=== PATIENT | male | born 1965 | race Caucasian/White ===

== ENCOUNTER → 2022-11-01 | Outpatient (CLI) | payer OTHER ==
[2022-11-01 10:21] LABS: BASO # 0.1 10^3/uL (0.0-0.2); BASO % 0.6 % (0.0-1.0); EOS # 0.2 10^3/uL (0.0-0.5); EOS % 2.4 % (0.0-3.0); HEMATOCRIT 44.3 % (42.0-52.0); HEMOGLOBIN 14.6 g/dl (13.5-17.5); LYMPH # 2.4 10^3/uL (1.5-5.0); LYMPH % 27.9 % (24.0-44.0); MEAN CORPUSCULAR HEMOGLOBIN 30.3 pg (27.0-33.0); MEAN CORPUSCULAR VOLUME 91.9 fl (80.0-96.0); MONO # 0.8 10^3/uL (0.0-0.8); MONO % 9.6 % (2.0-8.0); NEUTROPHILS % 58.8 % (36.0-66.0); PLATELET COUNT, AUTOMATED 429 10^3/uL (150-450); RED BLOOD COUNT 4.82 10^6/uL (4.30-6.10); WHITE BLOOD COUNT 8.4 10^3/uL (4.0-10.0)
[2022-11-01 10:54] LABS: ALBUMIN 3.7 G/DL (3.2-5.2); ALKALINE PHOSPHATASE 77 U/L (46-116); ALT/SGPT 15 U/L (7.0-40); AST/SGOT 18 U/L (<34); BILIRUBIN,TOTAL 0.7 MG/DL (0.3-1.2); BLOOD UREA NITROGEN 14 MG/DL (9-23); CALCIUM LEVEL 9.1 MG/DL (8.5-10.1); CARBON DIOXIDE LEVEL 29 MMOL/L (20-31); CHLORIDE LEVEL 105 MMOL/L (98-107); CHOLESTEROL LEVEL 115 MG/DL (<200); CHOLESTEROL RISK RATIO 3.59 (<5); CREATININE FOR GFR 0.88 MG/DL (0.70-1.30); GLOMERULAR FILTRATION RATE > 60.0 (>56); GLUCOSE, FASTING 101 MG/DL (60-100); LDL CHOLESTEROL 55.4 MG/DL (<100); NON-HDL-C 83 MG/DL; POTASSIUM SERUM 4.3 MMOL/L (3.5-5.1); SODIUM LEVEL 142 MMOL/L (136-145); TOTAL PROTEIN 6.7 G/DL (5.7-8.2); TRIGLYCERIDES LEVEL 138 MG/DL (<150)
[2022-11-01 11:20] LABS: HEMOGLOBIN A1c 5.2 % (4.0-6.0)
== END ==
LOC: M LAB 09:43
PROVIDERS: ATTEND Student in an Organized Health Care Education/Training Program
DX: E66.01 Morbid (severe) obesity due to excess calories (principal); I10 Essential (primary) hypertension

== ENCOUNTER → 2023-08-09 | Outpatient (REF) | payer OTHER | LOC: M SFHCLERA 11:29 | PROVIDERS: ATTEND Physician Assistant | DX: L08.9 Local infection of the skin and subcutaneous tissue, unspecified (principal) ==

== ENCOUNTER → 2023-08-24 | Outpatient (CLI) | payer OTHER ==
[2023-08-24 16:46] LABS: BASO # 0.1 10^3/uL (0.0-0.2); BASO % 0.6 % (0.0-1.0); EOS # 0.3 10^3/uL (0.0-0.5); EOS % 2.6 % (0.0-3.0); HEMATOCRIT 43.5 % (42.0-52.0); HEMOGLOBIN 14.4 g/dl (13.5-17.5); LYMPH # 3.2 10^3/uL (1.5-5.0); LYMPH % 29.2 % (24.0-44.0); MEAN CORPUSCULAR HEMOGLOBIN 30.3 pg (27.0-33.0); MEAN CORPUSCULAR HGB CONC 33.1 g/dl (32.0-36.5); MEAN CORPUSCULAR VOLUME 91.6 fl (80.0-96.0); NEUTROPHILS # 6.4 10^3/uL (1.5-8.5); NEUTROPHILS % 58.1 % (36.0-66.0); PLATELET COUNT, AUTOMATED 359 10^3/uL (150-450); RED BLOOD COUNT 4.75 10^6/uL (4.30-6.10); WHITE BLOOD COUNT 11.1 10^3/uL (4.0-10.0)
[2023-08-24 17:02] LABS: HEMOGLOBIN A1c 5.3 % (4.0-6.0)
[2023-08-24 17:13] LABS: IRON (FE) 95 UG/DL (65-175); PERCENT SATURATION 30.5 % (19.7-50.0); TOTAL IRON BINDING CAPACITY 311 UG/DL (250-425)
[2023-08-24 17:17] LABS: ALBUMIN 3.6 G/DL (3.2-5.2); ALKALINE PHOSPHATASE 64 U/L (46-116); ALT/SGPT 18 U/L (7.0-40); AST/SGOT 20 U/L (<34); BILIRUBIN,TOTAL 0.6 MG/DL (0.3-1.2); BLOOD UREA NITROGEN 16 MG/DL (9-23); CARBON DIOXIDE LEVEL 29 MMOL/L (20-31); CHLORIDE LEVEL 102 MMOL/L (98-107); CHOLESTEROL LEVEL 110 MG/DL (<200); FERRITIN 135.9 NG/ML (10.5-307.3); FOLATE 23.68 NG/ML (>5.4); FREE T4 0.97 NG/DL (0.89-1.76); GLOMERULAR FILTRATION RATE > 60.0 (>56); GLUCOSE, FASTING 106 MG/DL (60-100); HDL CHOLESTEROL 32.3 MG/DL (>40); LDL CHOLESTEROL 50.5 MG/DL (<100); NON-HDL-C 77.7 MG/DL; POTASSIUM SERUM 3.5 MMOL/L (3.5-5.1); SODIUM LEVEL 141 MMOL/L (136-145); THYROID STIMULATING HORMONE 0.775 uIU/ML (0.55-4.78); TOTAL 25(OH) VITAMIN D 21.7 NG/ML (20.0-100.0); TOTAL PROTEIN 6.5 G/DL (5.7-8.2); TRIGLYCERIDES LEVEL 136 MG/DL (<150); VITAMIN B12 LEVEL 1858 PG/ML (211-911)
[2023-08-30 16:09] LABS: HOMOCYST(E)INE SERUM 8.8 umol/L (0.0-14.5); Methylmalonic Acid 198 nmol/L (0-378)
== END ==
LOC: M WUC 11:50
PROVIDERS: ATTEND Physician Assistant
DX: E66.01 Morbid (severe) obesity due to excess calories (principal); I10 Essential (primary) hypertension; Z98.84 Bariatric surgery status

== ENCOUNTER → 2023-09-26 | Outpatient (REF) | payer OTHER ==
[2023-09-26 14:08] LABS: BASO % 0.6 % (0.0-1.0); EOS # 0.3 10^3/uL (0.0-0.5); EOS % 4.8 % (0.0-3.0); HEMATOCRIT 45.2 % (42.0-52.0); HEMOGLOBIN 15.4 g/dl (13.5-17.5); LYMPH % 43.3 % (24.0-44.0); MEAN CORPUSCULAR HEMOGLOBIN 30.6 pg (27.0-33.0); MEAN CORPUSCULAR HGB CONC 34.1 g/dl (32.0-36.5); MEAN CORPUSCULAR VOLUME 89.7 fl (80.0-96.0); MONO # 0.7 10^3/uL (0.0-0.8); MONO % 10.3 % (2.0-8.0); NEUTROPHILS # 2.8 10^3/uL (1.5-8.5); NEUTROPHILS % 40.6 % (36.0-66.0); PLATELET COUNT, AUTOMATED 205 10^3/uL (150-450); RED BLOOD COUNT 5.04 10^6/uL (4.30-6.10); WHITE BLOOD COUNT 6.9 10^3/uL (4.0-10.0)
== END ==
LOC: M WUC 11:35 → M SFHCLERA 11:35
PROVIDERS: ATTEND Physician Assistant
DX: I10 Essential (primary) hypertension (principal)

== ENCOUNTER → 2023-10-21 | Outpatient (REF) | payer OTHER | LOC: M LAB REF 12:28 | PROVIDERS: ATTEND Nurse Practitioner Family | DX: L02.211 Cutaneous abscess of abdominal wall (principal) ==

== ENCOUNTER → 2023-12-07 | Outpatient (REF) | payer OTHER | LOC: M LAB REF 16:52 | PROVIDERS: ATTEND Physician Assistant | DX: L30.4 Erythema intertrigo (principal) ==

== ENCOUNTER → 2024-04-05 | Outpatient (CLI) | payer OTHER | LOC: M WUC 13:55 | PROVIDERS: ATTEND Physician Assistant | DX: M54.42 Lumbago with sciatica, left side (principal) ==

== ENCOUNTER 2024-04-13 12:06 | Emergency (ER) | payer OTHER ==
[~2024-04-13] VITALS: Ht 165.1 cm; Wt 129.9 kg
[2024-04-13] MEDS ORDERED: ASPE4PAD TOP (14:44)
[2024-04-13 15:10] VITALS: BP 157/83; TEMP 96.2; O2SAT 97
[2024-04-13] MEDS: LIDOCAINE 5% (LIDODERM) PATCH TD ONE (15:21)
[2024-04-14] MEDS ORDERED: LORA-1041 PO (13:15)
[2024-04-14] MEDS ORDERED: REFR0.5D8 OU (13:15)
[2024-04-14] MEDS ORDERED: HYDR-3490 PO (13:15)
[2024-04-14] MEDS ORDERED: FLUTISP NARES (13:15)
[2024-04-14] MEDS ORDERED: CALC-364 PO (13:15)
[2024-04-14] MEDS ORDERED: DICL100G10 TOP (13:15)
[2024-04-14] MEDS ORDERED: ASPI81CH48 PO (13:15)
[2024-04-14] MEDS ORDERED: ZOLO100T PO (13:15)
[2024-04-14] MEDS ORDERED: SIMV40TA20 PO (13:15)
[2024-04-14] MEDS ORDERED: ERGO500029 PO (13:15)
[2024-04-14] MEDS ORDERED: MONT10TA97 PO (13:15)
[2024-04-14] MEDS ORDERED: FURO40TA2 PO (13:15)
[2024-04-14] MEDS ORDERED: ASPE4PAD2 TOP (13:15)
[2024-04-14] MEDS ORDERED: PRED10TA2 PO (13:15)
[2024-04-14] MEDS ORDERED: [UNRECOGNIZED DRUG - CODE] PO (13:15)
[2024-04-14] MEDS ORDERED: HYDR100C PO (13:25)
[2024-04-14] MEDS ORDERED: FERR32TA PO (13:25)
[2024-04-14] MEDS ORDERED: PRAM1.5T2 PO (13:25)
[2024-04-14] MEDS ORDERED: FENO145T7 PO (13:25)
[2024-04-14] MEDS ORDERED: PANT-23 PO (13:25)
[2024-04-14] MEDS ORDERED: GABA-1171 PO (13:25)
[2024-04-14] MEDS ORDERED: ACET-683 PO (13:25)
[2024-04-14] MEDS ORDERED: CENT1TAB12 PO (13:25)
[2024-04-14] MEDS ORDERED: SUCR1TAB56 PO (13:25)
== END 2024-04-13 15:21 | disposition home or self-care (01) ==
LOC: M ED 12:06
DX: S39.012A Strain of muscle, fascia and tendon of lower back, initial encounter (principal); M54.42 Lumbago with sciatica, left side; M51.37 Other intervertebral disc degeneration, lumbosacral region; M51.27 Other intervertebral disc displacement, lumbosacral region; Z98.84 Bariatric surgery status; Z88.5 Allergy status to narcotic agent; Z91.048 Other nonmedicinal substance allergy status; Z79.82 Long term (current) use of aspirin; Z79.52 Long term (current) use of systemic steroids; Z79.899 Other long term (current) drug therapy; Y92.9 Unspecified place or not applicable; Y93.9 Activity, unspecified; Y99.9 Unspecified external cause status

== ENCOUNTER 2024-04-14 06:52 | Emergency (ER) | payer OTHER ==
[~2024-04-14] VITALS: Ht 165.1 cm; Wt 135.5 kg
[~2024-04-14 06:52] MED LIST: ASPE4PAD TOP
[2024-04-14] MEDS: LIDOCAINE 5% (LIDODERM) PATCH TD ONE (09:24)
[2024-04-14] MEDS: KETOROLAC 60MG 2ML VIAL IM ONE (09:25)
[2024-04-14] MEDS: methylPREDNISolone 125MG 2ML VIAL IM ONE (09:25)
[2024-04-14] MEDS: ACETAMINOPHEN 500 MG TAB PO ONE (09:25)
[2024-04-14] MEDS: diazePAM 5MG TABLET PO ONE (09:26)
[2024-04-14] MEDS: PERCOCET 5MG/325MG TAB PO ONE (12:27)
[2024-04-14 13:11] LABS: BASO % 0.1 % (0.0-1.0); EOS # 0.1 10^3/uL (0.0-0.5); EOS % 0.8 % (0.0-3.0); HEMOGLOBIN 16.7 g/dl (13.5-17.5); LYMPH # 1.6 10^3/uL (1.5-5.0); LYMPH % 10.4 % (24.0-44.0); MEAN CORPUSCULAR HEMOGLOBIN 30.7 pg (27.0-33.0); MEAN CORPUSCULAR HGB CONC 34.8 g/dl (32.0-36.5); MEAN CORPUSCULAR VOLUME 88.2 fl (80.0-96.0); MONO # 0.4 10^3/uL (0.0-0.8); MONO % 2.4 % (2.0-8.0); NEUTROPHILS # 12.7 10^3/uL (1.5-8.5); NEUTROPHILS % 85.3 % (36.0-66.0); PLATELET COUNT, AUTOMATED 432 10^3/uL (150-450); RED BLOOD COUNT 5.44 10^6/uL (4.30-6.10); WHITE BLOOD COUNT 14.9 10^3/uL (4.0-10.0)
[2024-04-14] MEDS ORDERED: ASPE4PAD2 TOP (13:15)
[2024-04-14] MEDS ORDERED: FURO40TA2 PO (13:15)
[2024-04-14] MEDS ORDERED: ASPI81CH48 PO (13:15)
[2024-04-14] MEDS ORDERED: PRED10TA2 PO (13:15)
[2024-04-14] MEDS ORDERED: FLUTISP NARES (13:15)
[2024-04-14] MEDS ORDERED: HYDR-3490 PO (13:15)
[2024-04-14] MEDS ORDERED: REFR0.5D8 OU (13:15)
[2024-04-14] MEDS ORDERED: [UNRECOGNIZED DRUG - CODE] PO (13:15)
[2024-04-14] MEDS ORDERED: LORA-1041 PO (13:15)
[2024-04-14] MEDS ORDERED: SIMV40TA20 PO (13:15)
[2024-04-14] MEDS ORDERED: ERGO500029 PO (13:15)
[2024-04-14] MEDS ORDERED: CALC-364 PO (13:15)
[2024-04-14] MEDS ORDERED: MONT10TA97 PO (13:15)
[2024-04-14] MEDS ORDERED: DICL100G10 TOP (13:15)
[2024-04-14] MEDS ORDERED: ZOLO100T PO (13:15)
[2024-04-14 13:18] LABS: ERYTHROCYTE SEDIMENTATION RATE 34 mm/hr (0-20)
[2024-04-14] MEDS ORDERED: SUCR1TAB56 PO (13:25)
[2024-04-14] MEDS ORDERED: FENO145T7 PO (13:25)
[2024-04-14] MEDS ORDERED: HYDR100C PO (13:25)
[2024-04-14] MEDS ORDERED: PANT-23 PO (13:25)
[2024-04-14] MEDS ORDERED: PRAM1.5T2 PO (13:25)
[2024-04-14] MEDS ORDERED: ACET-683 PO (13:25)
[2024-04-14] MEDS ORDERED: FERR32TA PO (13:25)
[2024-04-14] MEDS ORDERED: GABA-1171 PO (13:25)
[2024-04-14] MEDS ORDERED: CENT1TAB12 PO (13:25)
[2024-04-14] MEDS ORDERED: HOME MED LIST COMPLETE! XX SCH (13:30)
[2024-04-14 13:38] LABS: ALBUMIN 4.2 G/DL (3.2-5.2); ALKALINE PHOSPHATASE 59 U/L (46-116); ALT/SGPT 28 U/L (7.0-40); AST/SGOT 19 U/L (<34); BILIRUBIN,TOTAL 1.2 MG/DL (0.3-1.2); BLOOD UREA NITROGEN 29 MG/DL (9-23); CALCIUM LEVEL 9.4 MG/DL (8.3-10.6); CARBON DIOXIDE LEVEL 30 MMOL/L (20-31); CHLORIDE LEVEL 101 MMOL/L (98-107); CREATININE FOR GFR 1.08 MG/DL (0.70-1.30); GLOMERULAR FILTRATION RATE > 60.0 (>49); GLUCOSE, FASTING 148 MG/DL (74-106); POTASSIUM SERUM 3.9 MMOL/L (3.5-5.1); SODIUM LEVEL 138 MMOL/L (136-145); TOTAL PROTEIN 7.2 G/DL (5.7-8.2)
[2024-04-14] MEDS: fentaNYL 100 MCG/2 ML INJECTION IV ONE (14:38)
[2024-04-14 16:02] VITALS: BP 146/82; TEMP 97.4; O2SAT 95
== END 2024-04-14 16:04 | disposition short-term general hospital (02) ==
LOC: M ED 06:52 → EDBD 06:52 → CANBEDREQ 14:18 → M ED 16:04
DX: M51.26 Other intervertebral disc displacement, lumbar region (principal); M48.062 Spinal stenosis, lumbar region with neurogenic claudication; E66.01 Morbid (severe) obesity due to excess calories; I10 Essential (primary) hypertension; F41.9 Anxiety disorder, unspecified; F32.A Depression, unspecified; E78.5 Hyperlipidemia, unspecified; K21.9 Gastro-esophageal reflux disease without esophagitis; G25.81 Restless legs syndrome; Z88.5 Allergy status to narcotic agent; Z91.048 Other nonmedicinal substance allergy status; Z79.82 Long term (current) use of aspirin; Z79.52 Long term (current) use of systemic steroids; Z79.899 Other long term (current) drug therapy; Z79.810 Long term (current) use of selective estrogen receptor modulators (SERMs)
CPT/HCPCS: 72148; 80053; 85025; 85652; 86140; 96372; 96374; 99284; J1885; J2919; J3010

== ENCOUNTER → 2024-04-25 | Outpatient (REF) | payer OTHER ==
[~2024-04-25] MED LIST changes: +ACET-683 PO; +ASPE4PAD2 TOP; +ASPI81CH48 PO; +CALC-364 PO; +CENT1TAB12 PO; +DICL100G10 TOP; +ERGO500029 PO; +FENO145T7 PO; +FERR32TA PO; +FLUTISP NARES; +FURO40TA2 PO; +GABA-1171 PO; +HYDR-3490 PO; +HYDR100C PO; +LORA-1041 PO; +MONT10TA97 PO; +PANT-23 PO; +PRAM1.5T2 PO; +PRED10TA2 PO; +REFR0.5D8 OU; +SIMV40TA20 PO; +SUCR1TAB56 PO; +ZOLO100T PO; +[UNRECOGNIZED DRUG - CODE] PO
== END ==
LOC: M LAB REF 20:23
PROVIDERS: ATTEND Physician Assistant
DX: L30.4 Erythema intertrigo (principal)

== ENCOUNTER → 2024-11-28 | Outpatient (REF) | payer OTHER ==
[2024-11-28 18:46] LABS: PSA SCREENING 1.37 NG/ML (< 4.00)
[2024-11-28 18:48] LABS: FERRITIN 155.4 NG/ML (10.5-307.3)
[2024-11-28 18:49] LABS: TOTAL 25(OH) VITAMIN D 38.6 NG/ML (20.0-100.0)
[2024-11-28 18:50] LABS: FOLATE 14.04 NG/ML (>5.4)
[2024-11-28 18:54] LABS: ALBUMIN 3.9 G/DL (3.2-5.2); ALKALINE PHOSPHATASE 66 U/L (40-129); ALT/SGPT 25 U/L (7.0-40); AST/SGOT 29 U/L (<34); BILIRUBIN,TOTAL 0.5 MG/DL (0.3-1.2); BLOOD UREA NITROGEN 25 MG/DL (9-23); CALCIUM LEVEL 9.7 MG/DL (8.3-10.6); CARBON DIOXIDE LEVEL 29 MMOL/L (20-31); CHLORIDE LEVEL 104 MMOL/L (98-107); CREATININE FOR GFR 0.96 MG/DL (0.70-1.30); GLOMERULAR FILTRATION RATE > 60.0 (>49); GLUCOSE, FASTING 104 MG/DL (74-106); IRON (FE) 73 UG/DL (65-175); PERCENT SATURATION 21.7 % (19.7-50.0); POTASSIUM SERUM 3.8 MMOL/L (3.5-5.1); SODIUM LEVEL 146 MMOL/L (136-145); TOTAL IRON BINDING CAPACITY 336 UG/DL (250-425)
[2024-11-28 18:58] LABS: VITAMIN B12 LEVEL > 2000 PG/ML (211-911)
[2024-11-28 19:07] LABS: BASO # 0.1 10^3/uL (0.0-0.2); BASO % 0.5 % (0.0-1.0); EOS # 0.3 10^3/uL (0.0-0.5); EOS % 3.4 % (0.0-3.0); HEMATOCRIT 46.6 % (42.0-52.0); HEMOGLOBIN 15.3 g/dl (13.5-17.5); LYMPH # 2.6 10^3/uL (1.5-5.0); LYMPH % 25.9 % (24.0-44.0); MEAN CORPUSCULAR HEMOGLOBIN 29.5 pg (27.0-33.0); MEAN CORPUSCULAR HGB CONC 32.8 g/dl (32.0-36.5); MONO # 1.2 10^3/uL (0.0-0.8); MONO % 12.5 % (2.0-8.0); NEUTROPHILS # 5.6 10^3/uL (1.5-8.5); NEUTROPHILS % 56.7 % (36.0-66.0); PLATELET COUNT, AUTOMATED 284 10^3/uL (150-450); RED BLOOD COUNT 5.18 10^6/uL (4.30-6.10); WHITE BLOOD COUNT 9.9 10^3/uL (4.0-10.0)
== END ==
LOC: M SFHCLERA 09:35
DX: E61.1 Iron deficiency (principal); Z12.5 Encounter for screening for malignant neoplasm of prostate; Z98.84 Bariatric surgery status; I10 Essential (primary) hypertension; E66.01 Morbid (severe) obesity due to excess calories; Z68.43 Body mass index [BMI] 50.0-59.9, adult; F41.9 Anxiety disorder, unspecified; R53.82 Chronic fatigue, unspecified

== ENCOUNTER → 2025-01-30 | Outpatient (CLI) | payer OTHER | LOC: M RAD 08:29 | PROVIDERS: ATTEND Physical Medicine & Rehabilitation | DX: M51.26 Other intervertebral disc displacement, lumbar region (principal) ==

== ENCOUNTER → 2025-05-14 | Outpatient (REF) | payer OTHER ==
[2025-05-14 18:39] LABS: BASO # 0.1 10^3/uL (0.0-0.2); BASO % 0.6 % (0.0-1.0); EOS # 0.2 10^3/uL (0.0-0.5); EOS % 1.8 % (0.0-3.0); LYMPH # 3.0 10^3/uL (1.5-5.0); LYMPH % 25.4 % (24.0-44.0); MONO # 1.5 10^3/uL (0.0-0.8); MONO % 12.4 % (2.0-8.0); NEUTROPHILS # 6.8 10^3/uL (1.5-8.5); NEUTROPHILS % 58.7 % (36.0-66.0); PLATELET COUNT, AUTOMATED 258 10^3/uL (150-450)
[2025-05-14 19:12] LABS: TOTAL 25(OH) VITAMIN D 45.4 NG/ML (20.0-100.0)
[2025-05-14 19:13] LABS: IRON (FE) 76.0 UG/DL (65-175)
[2025-05-14 19:14] LABS: PERCENT SATURATION 22.2 % (19.7-50.0)
[2025-05-14 19:17] LABS: ALT/SGPT 16.0 U/L (7.0-40); AST/SGOT 20.0 U/L (<34); CALCIUM LEVEL 9.0 MG/DL (8.3-10.6); CARBON DIOXIDE LEVEL 27.0 MMOL/L (20-31); CHLORIDE LEVEL 101.0 MMOL/L (98-107); CHOLESTEROL LEVEL 146.0 MG/DL (<200); CHOLESTEROL RISK RATIO 4.08 (<5); CREATININE FOR GFR 1.13 MG/DL (0.70-1.30); GLOMERULAR FILTRATION RATE 74.0 (>49); LDL CHOLESTEROL 72.9 MG/DL (<100); NON-HDL-C 110.3 MG/DL; POTASSIUM SERUM 4.2 MMOL/L (3.5-5.1); SODIUM LEVEL 143.0 MMOL/L (136-145); TRIGLYCERIDES LEVEL 187.0 MG/DL (<150)
[2025-05-14 20:02] LABS: ESTIMATED AVERAGE GLUCOSE 111.0 MG/DL (60-110)
== END ==
LOC: M SFHCLERA 11:51
DX: I10 Essential (primary) hypertension (principal); R53.82 Chronic fatigue, unspecified